=== PATIENT | female | born 1945 | race Caucasian/White ===

== ENCOUNTER → 2017-09-08 | Outpatient (CLI) | payer OTHER | LOC: CIMAGING 10:08 | PROVIDERS: ATTEND Family Medicine | DX: Z12.31 Encounter for screening mammogram for malignant neoplasm of breast (principal) | CPT/HCPCS: G0202 ==

== ENCOUNTER → 2018-11-02 | Outpatient (CLI) | payer OTHER | LOC: CIMAGING 11:12 | PROVIDERS: ATTEND Family Medicine | DX: Z12.31 Encounter for screening mammogram for malignant neoplasm of breast (principal) ==

== ENCOUNTER → 2018-11-12 | Outpatient (CLI) | payer OTHER | LOC: CIMAGING 12:40 | PROVIDERS: ATTEND Family Medicine | DX: N63.11 Unspecified lump in the right breast, upper outer quadrant (principal); Z86.018 Personal history of other benign neoplasm | CPT/HCPCS: 76641-PO ==